=== PATIENT | female | born 1995 | race African-American/Black ===

== ENCOUNTER 2018-03-03 01:19 | Emergency (ER) | payer BC ==
[2018-03-03] MEDS ORDERED: Famotidine TAB* 20 MG PO ONE (01:34)
[2018-03-03] MEDS ORDERED: Al Hydrox/Mg Hydrox/Simet LIQ* 30 ML UDC PO ONE ×2 (01:35→03:38)
--- NOTE | 2018-03-03 01:42 | ED ---
Abdominal Pain/Female - HPI Summary HPI Summary: This patient is a 22 year old F presenting to [facility] with a chief complaint of burning epigastric pain since 1000 03/02/18. Pt endorses pain was severe at onset , then pain alleviated during middle of day, then sx worsened again about 3 hours ago (2229). Pt notes that clenching her abd muscles alleviates sx. Pt denies N/V, abnormal or symptomatic menstruation (LMP 2 weeks ago). Pt endorses similar sx in past but to lesser severity. Rx Prevacid, omeprazole (was just prescribed omeprazole, has not taken it yet). Pt endorses eating aggravates sx. She denies abd SHx. Endorses endoscopy, PMHx gastritis. - History of Current Complaint Chief Complaint: EDAbdPain Stated Complaint: ABD PAIN UPPER CENTER Time Seen by Provider: 03/03/18 01:27 Hx Obtained From: Patient Onset/Duration: Sudden Onset, Lasting Hours, Still Present, Worse Since - 2229 Timing: Constant Severity Initially: Severe Severity Currently: Moderate Pain Intensity: 8 Pain Scale Used: 0-10 Numeric Location: Discrete At: RUQ, Epigastric Radiates: No Character: Burning Aggravating Factor(s): Food Alleviating Factor(s): Other: - clenching abd muscles Associated Signs and Symptoms: Positive: Decreased Appetite. Negative: Fever, Vaginal Bleeding, Nausea, Vomiting Simlar Episode/Dx as:: Dx gastritis Allergies/Adverse Reactions: Allergies Allergy/AdvReac Type Severity Reaction Status Date / Time No Known Allergies Allergy Verified 03/03/18 01:22 Home Medications: Home Medications NK [No Home Medications Reported] 03/03/18 [History Confirmed 03/03/18] PMH/Surg Hx/FS Hx/Imm Hx Cardiovascular History: Denies: Hx Myocardial Infarction Respiratory History: Denies: Hx Lung Cancer GI History: Reports: Other GI Disorders - gastritis History: Denies: Hx Dialysis Musculoskeletal History: Denies: Hx Osteoporosis Sensory History: Reports: Hx Contacts or Glasses Denies: Hx Legally Blind, Hx Deafness Opthamlomology History: Reports: Hx Contacts or Glasses Denies: Hx Legally Blind EENT History: Denies: Hx Deafness Neurological History: Denies: Hx Dementia Psychiatric History: Denies: Hx Autism, Hx Schizophrenia Infectious Disease History: No Infectious Disease History: Denies: Traveled Outside the [place] in Last 30 Days - Family History Known Family History: Positive: Hypertension, Diabetes Negative: Cardiac Disease - Social History Occupation: Student Lives: Dormitory/Roommates Alcohol Use: None Hx Substance Use: No Substance Use Type: Reports: None Hx Tobacco Use: No Smoking Status (MU): Never Smoked Tobacco Review of Systems Negative: Fever Positive: Abdominal Pain, Other - decreased appetite. Negative: Vomiting, Nausea Positive: no symptoms reported All Other Systems Reviewed And Are Negative: Yes Physical Exam - Summary Physical Exam Summary: Appearance: Well-appearing, Well-nourished, lying in bed comfortably Skin: Warm, dry, no obvious rash Eyes: sclera anicteric, no conjunctival pallor ENT: mucous membranes moist, pharynx appears normal Neck: Supple, nontender Respiratory: Clear to auscultation, no signs of respiratory distress Cardiovascular: Normal S1, S2. No murmurs. Normal distal pulses in tibial and radial bilaterally. Abdomen: Soft, upper abdominal tenderness without peritoneal signs, normal active bowel sounds present Musculoskeletal: Normal, Strength/ROM Intact Neurological: A&Ox3, awake and alert, mentation is normal, speech is fluent and appropriate Psychiatric: affect is normal, does not appear anxious or depressed Triage Information Reviewed: Yes Vital Signs On Initial Exam: Initial Vitals Temp Pulse Resp BP Pulse Ox 97.7 F 73 16 124/88 100 03/03/18 01:22 03/03/18 01:22 03/03/18 01:22 03/03/18 01:22 03/03/18 01:22 Vital Signs Reviewed: Yes Diagnostics - Vital Signs Vital Signs Temp Pulse Resp BP Pulse Ox 03/03/18 01:22 97.7 F 73 16 124/88 100 - Laboratory Result Diagrams: 03/03/18 01:44 03/03/18 01:44 Lab Statement: Any lab studies that have been ordered have been reviewed, and results considered in the medical decision making process. Abdominal Pain Fem Course/Dx - Diagnoses Provider Diagnoses: Gastritis Discharge - Sign-Out/Discharge Documenting (check all that apply): Patient Departure - Discharge Plan Condition: Good Disposition: HOME Patient Education Materials: Gastritis (ED), Acute Abdominal Pain (ED) Referrals: [facility] [Outside] No Primary Care Phys,NOPCP [Primary Care Provider] - Additional Instructions: Resume your omeprazole, this should help the pain improve over the next few days. - Billing Disposition and Condition Condition: GOOD Disposition: Home - Attestation Statements Document Initiated by Charles: Yes Documenting Yobanyibe: Graham Paula Provider For Whom Charles is Documenting (Include Credential): Dr. Jose Luis Wilcox MD Scribe Attestation: I, Graham Paula, scribed for Dr. Jose Luis Wilcox MD on 03/03/18 at 0415. Scribe Documentation Reviewed: Yes Provider Attestation: The documentation as recorded by the Graham case accurately reflects the service I personally performed and the decisions made by me, Dr. Jose Luis Wilcox MD
[2018-03-03 01:52] LABS: ABS Basophils 0.1 10^3/ul (0-0.2); ABS Eosinophils 0.2 10^3/ul (0-0.6); ABS Lymphocytes 3.7 10^3/ul (1.0-4.8); ABS Monocytes 0.6 10^3/ul (0-0.8); ABS Neutrophils 2.7 10^3/ul (1.5-7.7); ABS Nucleated RBC 0 10^3/ul; Eosinophil % 2.5 % (0-6); Hematocrit 35 % (35-47); Hemoglobin 11.9 g/dl (12.0-16.0); Lymphocyte % 51.6 % (25-47); Mean Corpuscular HGB Conc 34 g/dl (31-36); Mean Corpuscular Hemoglobin 30 pg (27-31); Mean Corpuscular Volume 89 fL (80-97); Mean Platelet Volume 9.5 um3 (7.4-10.4); Nucleated Red Blood Cells % 0.1; Platelet Count 227 10^3/ul (150-450); Red Blood Count 3.93 10^6/ul (4.00-5.40); Red Cell Distribution Width 13 % (10.5-15); White Blood Count 7.2 10^3/ul (3.5-10.8)
[2018-03-03 02:06] LABS: EGFR Non-African American 74.3 (>60)
[2018-03-03 03:21] VITALS: BP 115/89
[2018-03-03 03:24] LABS: Urine Appearance Clear; Urine Blood Negative (Negative); Urine Color Straw; Urine Ketones Negative (Negative); Urine Protein Negative (Negative); Urine Specific Gravity 1.005 (1.010-1.030); Urine Urobilinogen Negative (Negative)
== END 2018-03-03 03:45 | disposition home or self-care (01) ==
LOC: ED 01:19
DX: K29.70 Gastritis, unspecified, without bleeding (principal)
CPT/HCPCS: 36415; 80053; 81003; 83690; 84702; 85025; 99283; A9270-GY